=== PATIENT | male | born 1945 | race Caucasian/White ===

== ENCOUNTER 2018-06-15 14:54 | Outpatient (CLI) | payer OTHER | END 2018-06-15 14:56 | disposition home or self-care (01) | LOC: RAD 14:54 | DX: J20.8 Acute bronchitis due to other specified organisms (principal) ==

== ENCOUNTER 2019-07-12 17:11 | Outpatient (CLI) | payer OTHER | END 2019-07-12 17:17 | disposition home or self-care (01) | LOC: RAD 17:11 | DX: M19.072 Primary osteoarthritis, left ankle and foot (principal) ==

== ENCOUNTER 2020-11-21 09:17 | Outpatient (CLI) | payer OTHER | END 2020-11-21 10:04 | disposition home or self-care (01) | LOC: LAB 09:17 | PROVIDERS: ATTEND General Practice | DX: Z12.11 Encounter for screening for malignant neoplasm of colon (principal); Z12.13 Encounter for screening for malignant neoplasm of small intestine; E78.2 Mixed hyperlipidemia; D64.89 Other specified anemias; E55.9 Vitamin D deficiency, unspecified; E11.69 Type 2 diabetes mellitus with other specified complication ==

== ENCOUNTER → 2020-12-03 14:51 | Outpatient (CLI) | payer OTHER | END | disposition home or self-care (01) | LOC: LAB 14:51 | PROVIDERS: ATTEND General Practice | DX: E03.8 Other specified hypothyroidism (principal); N28.89 Other specified disorders of kidney and ureter; E78.2 Mixed hyperlipidemia; Z12.11 Encounter for screening for malignant neoplasm of colon; Z12.13 Encounter for screening for malignant neoplasm of small intestine; E11.69 Type 2 diabetes mellitus with other specified complication; D64.89 Other specified anemias; E55.9 Vitamin D deficiency, unspecified ==

== ENCOUNTER 2021-10-24 14:53 | Outpatient (CLI) | payer OTHER | END 2021-10-24 14:55 | disposition home or self-care (01) | LOC: RAD 14:53 | PROVIDERS: ATTEND Physical Medicine & Rehabilitation | DX: M25.572 Pain in left ankle and joints of left foot (principal) ==

== ENCOUNTER 2025-08-14 10:05 | Outpatient (CLI) | payer OTHER ==
[2025-08-14 11:46] LABS: URINE COLOR Yellow
[2025-08-14 11:47] LABS: URINE APPEARANCE Clear; URINE BILIRRUBIN Negative (NEGATIVE); URINE BLOOD Negative; URINE GLUCOSE Negative (NEGATIVE); URINE KETONE Negative (NEGATIVE); URINE LEUKOCYTE Small; URINE NITRATE Negative; URINE PROTEIN Negative (NEGATIVE); URINE UROBILINOGEN 1.0 E.U./dl
[2025-08-14 11:48] LABS: URINE BACTERIA 100.7 uL (0.0-1933); URINE RBC 5.4 uL (0.0-20.8); URINE WBC 34.9 uL (0.0-23.2)
[2025-08-14 11:49] LABS: URINE CAST 0.29 uL (0.0-1.40); URINE EPITHELIAL CELLS 1.0 uL (0.0-38.8)
[2025-08-14 12:07] LABS: BASO % 0.8 % (0.1-1.2); EOS # 0.31 (0.04-0.54); EOS % 4.7 % (0.7-7.0); LYMPH # 1.96 (1.18-3.74); LYMPH % 29.5 % (19.3-53.1); MEAN PLATELET VOLUME 10.10 fl (9.4-12.4); MONO # 0.45 (0.24-0.82); MONO % 6.8 % (4.7-12.5); NEUT # 3.86 (1.56-6.13); NEUT % 57.9 % (34.0-71.1); RED CELL DISTRIBUTION WIDTH 12.0 % (11.6-14.4)
[2025-08-14 12:35] LABS: INR 1.03
[2025-08-14 12:54] LABS: ALT/SGPT 32.0 U/L (12-78); AST/SGOT 16.0 U/L (15-37); BILIRUBIN TOTAL 0.61 mg/dL (0.3-1.2); BUN CREA RATIO 14.0 (7.0-25.0); CREATININE SERUM 1.04 mg/dL (0.70-1.30); GFR 68.37; GLOBULINA 3.5 G/DL (2.4-3.5); GLUCOSE FASTING 141.0 mg/dL (65-100); OSMOLALITY SERUM 286.0 MOSM/KG (275-295)
== END 2025-08-14 10:11 | disposition home or self-care (01) ==
LOC: LAB 10:05
DX: H53.9 Unspecified visual disturbance (principal)

== ENCOUNTER 2025-08-14 12:05 | Outpatient (CLI) | payer OTHER | END 2025-08-14 12:10 | disposition home or self-care (01) | LOC: RAD 12:05 | DX: Z01.818 Encounter for other preprocedural examination (principal) ==